=== PATIENT | female | born 1960 | race Caucasian/White ===

== ENCOUNTER 2019-03-27 19:07 | Inpatient (IN) | payer MEDICARE ==
[~2019-03-27] VITALS: Ht 165.1 cm; Wt 120.0 kg
[2019-03-27] MEDS ORDERED: AMLODIPINE2.5 MG PO (19:43)
[2019-03-27] MEDS ORDERED: SIMVASTATIN80 MG PO (19:44)
[2019-03-27] MEDS ORDERED: TIZANIDINE HCL4 MG PO (19:44)
[2019-03-27] MEDS ORDERED: LOPID600 MG PO (19:44)
[2019-03-27] MEDS ORDERED: LYRICA50 MG PO (19:45)
[2019-03-27] MEDS ORDERED: LORTAB 1010 MG PO (19:45)
[2019-03-27] MEDS ORDERED: AMITRIPTYLIN25 MG PO (19:46)
[2019-03-27] MEDS ORDERED: VITAMIN D50000 UNIT PO (19:46)
[2019-03-27] MEDS ORDERED: XANAX1 MG PO (19:46)
[2019-03-27] MEDS ORDERED: FUROSEMIDE20 MG PO (19:47)
[2019-03-27 20:10] LABS: HEMATOCRIT 37.2 % (37.0-47.0); HEMOGLOBIN 12.5 g/dl (12.0-16.0); IMMATURE GRANULOCYTES 0.5 % (0.0-5.0); MEAN CELL VOLUME 93.7 fL CALC (80.0-100.0); MEAN CORPUSCULAR HGB 31.5 pG CALC (26.0-32.0); MEAN CORPUSCULAR HGB CONC 33.6 g/L CALC (32.0-36.0); NEUT# 3.5 thou/uL (2.00-7.15); RED BLOOD COUNT 3.97 mill/uL (4.20-5.60); RED CELL DISTRI WIDTH 13.2 % (11.5-15.5)
[2019-03-27 20:12] LABS: URINE BILIRUBIN - DIPSTICK NEGATIVE (NEGATIVE); URINE BLOOD DIPSTICK NEGATIVE (NEGATIVE); URINE COLOR YELLOW; URINE GLUCOSE - DIPSTICK NEGATIVE (NEGATIVE); URINE KETONE NEGATIVE (NEGATIVE); URINE LEUK ESTERASE NEGATIVE (NEGATIVE); URINE NITRITE - DIPSTICK NEGATIVE (Negative); URINE PROTEIN - DIPSTICK NEGATIVE (NEG-TRACE); URINE UROBILINOGEN - DIPSTICK 0.2 E.U./dL (0.2)
[2019-03-27 20:14] LABS: COCAINE NEGATIVE (NEGATIVE); METHADONE NEGATIVE (NEGATIVE); TETRAHYDROCANNABIONOL NEGATIVE (NEGATIVE)
[2019-03-27 20:15] LABS: BARBITURATES NEGATIVE (NEGATIVE); OXCYCODONE POSITIVE (NEGATIVE); TRICYLIC ANTIDEPRESSANTS POSITIVE (NEGATIVE)
[2019-03-27 20:49] LABS: ALBUMIN 4.6 g/dL (3.2-5.0); BILIRUBIN, TOTAL 1.1 mg/dL (0.0-1.4); CREATININE 1.4 mg/dL (0.5-1.0); POTASSIUM 4.2 mmol/l (3.5-5.1); TOTAL PROTEIN 6.9 g/dL (6.3-8.2)
[2019-03-27 22:25] VITALS: BP 159/64
[2019-03-27 22:45] VITALS: BP 115/59
[2019-03-27 23:00] VITALS: BP 102/79
[2019-03-27 23:15] VITALS: BP 111/52
[2019-03-28] VITALS (7 sets, daily range): BP systolic 85–114; BP diastolic 45–59
[2019-03-28 10:52] LABS: HEMATOCRIT 35.7 % (37.0-47.0); HEMOGLOBIN 11.8 g/dl (12.0-16.0); IMMATURE GRANULOCYTES 0.4 % (0.0-5.0); MEAN CELL VOLUME 94.9 fL CALC (80.0-100.0); MEAN CORPUSCULAR HGB 31.4 pG CALC (26.0-32.0); MEAN CORPUSCULAR HGB CONC 33.1 g/L CALC (32.0-36.0); NEUT# 2.86 thou/uL (2.00-7.15); RED BLOOD COUNT 3.76 mill/uL (4.20-5.60); RED CELL DISTRI WIDTH 13.3 % (11.5-15.5)
[2019-03-28 11:17] LABS: ALBUMIN 3.9 g/dL (3.2-5.0); ALKALINE PHOSPHATASE 91 u/l (38-126); ANION GAP 10 (6-22 (CALC)); BUN 13 mg/dL (7-17); BUN/CREATININE RATIO 17 (12-20 (CALC)); CARBON DIOXIDE 27 mmol/l (22-30); CHLORIDE 107 mmol/l (95-108); CREATININE 0.7 mg/dL (0.5-1.0); GFR > 60 ML/MIN (>=60 (CALC)); GFR FOR AFR.AMER. > 60 ML/MIN (>=60 (CALC)); MAGNESIUM 1.9 mg/dL (1.6-2.3); POTASSIUM 3.7 mmol/l (3.5-5.1); SGOT/AST 19 u/l (14-36); SODIUM 140 mmol/l (137-146); TOTAL PROTEIN 6.1 g/dL (6.3-8.2)
== END 2019-03-28 13:22 | disposition home or self-care (01) | DRG 917 ==
LOC: ED 19:07 → ED-I 20:45 → ED 21:01 → ICU 21:02
PROVIDERS: Emergency Medicine; Internal Medicine Nephrology; ADMIT Internal Medicine; ATTEND Internal Medicine
PROC: 5A09357 Assistance with Respiratory Ventilation, Less than 24 Consecutive Hours, Continuous Positive Airway Pressure (ICD-10-PCS; principal; 2019-03-27)
DX: T40.2X1A Poisoning by other opioids, accidental (unintentional), initial encounter (principal); J96.92 Respiratory failure, unspecified with hypercapnia; J96.91 Respiratory failure, unspecified with hypoxia; E87.2 Acidosis; N17.9 Acute kidney failure, unspecified; Z68.41 Body mass index [BMI] 40.0-44.9, adult; T40.601A Poisoning by unspecified narcotics, accidental (unintentional), initial encounter; T42.4X1A Poisoning by benzodiazepines, accidental (unintentional), initial encounter; T42.6X1A Poisoning by other antiepileptic and sedative-hypnotic drugs, accidental (unintentional), initial encounter; I10 Essential (primary) hypertension; F41.8 Other specified anxiety disorders; E86.0 Dehydration; E78.5 Hyperlipidemia, unspecified; G89.29 Other chronic pain; M54.9 Dorsalgia, unspecified; E66.9 Obesity, unspecified; E56.0 Deficiency of vitamin E; F17.210 Nicotine dependence, cigarettes, uncomplicated; Y92.009 Unspecified place in unspecified non-institutional (private) residence as the place of occurrence of the external cause
CPT/HCPCS: J1650

== ENCOUNTER 2019-07-09 06:04 | Day surgery (SDC) | payer MEDICARE ==
[~2019-07-09] VITALS: Ht 162.6 cm; Wt 121.6 kg
[~2019-07-09 06:04] MED LIST: AMITRIPTYLIN25 MG PO; AMLODIPINE2.5 MG PO; BALANCED B PO; CITALOPRAM40 M1 PO; FUROSEMIDE20 MG PO; LOPID600 MG PO; LORTAB 1010 MG PO; LYRICA50 MG PO; MOTRIN800 MG PO; SIMVASTATIN80 MG PO; TIZANIDINE HCL4 MG PO; VITAMIN D50000 UNIT PO; XANAX1 MG PO
[2019-07-09] MEDS ORDERED: ATORVASTATIN CA40 MG PO (06:34)
[2019-07-09 07:39] VITALS: BP 143/86
== END 2019-07-09 08:05 | disposition home or self-care (01) ==
LOC: ORM 06:04
PROVIDERS: ATTEND Anesthesiology Pain Medicine
DX: M46.1 Sacroiliitis, not elsewhere classified (principal)
CPT/HCPCS: Q9967

== ENCOUNTER 2019-10-04 | Emergency (ER) | payer MEDICARE ==
[~2019-10-04] MED LIST changes: +ATORVASTATIN CA40 MG PO
[2019-10-04 13:20] LABS: IMMATURE GRANULOCYTES 0.4 % (0.0-5.0); MEAN CORPUSCULAR HGB 28.9 pG CALC (26.0-32.0); MEAN CORPUSCULAR HGB CONC 32.4 g/L CALC (32.0-36.0); NEUT# 2.62 thou/uL (2.00-7.15); RED BLOOD COUNT 3.15 mill/uL (4.20-5.60); RED CELL DISTRI WIDTH 13.6 % (11.5-15.5)
[2019-10-04 13:26] LABS: HEMATOCRIT 28.1 % (37.0-47.0); HEMOGLOBIN 9.1 g/dl (12.0-16.0); MEAN CELL VOLUME 89.2 fL CALC (80.0-100.0)
[2019-10-04 13:36] LABS: ALBUMIN 3.8 g/dL (3.2-5.0); ALKALINE PHOSPHATASE 116 u/l (38-126); ANION GAP 9 (6-22 (CALC)); BILIRUBIN, TOTAL 1.3 mg/dL (0.0-1.4); BUN 9 mg/dL (7-17); BUN/CREATININE RATIO 14 (12-20 (CALC)); CARBON DIOXIDE 28 mmol/l (22-30); CHLORIDE 104 mmol/l (95-108); CREATININE 0.6 mg/dL (0.5-1.0); GFR > 60 ML/MIN (>=60 (CALC)); GFR FOR AFR.AMER. > 60 ML/MIN (>=60 (CALC)); POTASSIUM 3.5 mmol/l (3.5-5.1); SGOT/AST 31 u/l (14-36); SODIUM 138 mmol/l (137-146); TOTAL PROTEIN 6.7 g/dL (6.3-8.2)
[2019-10-04 13:48] LABS: MYOGLOBIN 18 ng/mL (0 - 62)
[2019-10-04] MEDS ORDERED: PERCOCET 10/31 COMBO PO (14:46)
[2019-10-04] MEDS ORDERED: PROFERRIN- PO (14:48)
[2019-10-04] MEDS ORDERED: POT CHLORIDE10 ME1 PO (14:49)
[2019-10-04 14:54] LABS: URINE BLOOD DIPSTICK NEGATIVE (NEGATIVE); URINE COLOR YELLOW; URINE GLUCOSE - DIPSTICK NEGATIVE (NEGATIVE); URINE KETONE TRACE mg/dL (NEGATIVE); URINE LEUK ESTERASE NEGATIVE (NEGATIVE); URINE NITRITE - DIPSTICK NEGATIVE (Negative); URINE PH 8.5 (4.5-8.0); URINE PROTEIN - DIPSTICK NEGATIVE (NEG-TRACE); URINE SPECIFIC GRAVITY 1.015; URINE UROBILINOGEN - DIPSTICK >=8.0 E.U./dL (0.2)
[2019-10-04 14:57] LABS: URINE BILIRUBIN - DIPSTICK MODERATE (NEGATIVE)
[2019-10-04 14:58] LABS: BARBITURATES NEGATIVE (NEGATIVE); COCAINE NEGATIVE (NEGATIVE); METHADONE NEGATIVE (NEGATIVE); OXCYCODONE POSITIVE (NEGATIVE); TETRAHYDROCANNABIONOL NEGATIVE (NEGATIVE); TRICYLIC ANTIDEPRESSANTS POSITIVE (NEGATIVE)
[2019-10-04] MEDS ORDERED: ONDANSETRON4 MG PO (15:12)
[2020-05-25] MEDS ORDERED: LYRICA100 MG PO (17:20)
[2020-05-25] MEDS ORDERED: OXAYDO7.5 MG PO (17:22)
[2020-05-25] MEDS ORDERED: XANAX0.5 MG PO (17:23)
[2020-05-25] MEDS ORDERED: AMITRIPTYLIN75 MG PO (17:24)
[2020-05-25] MEDS ORDERED: CYMBALTA60 MG PO (17:25)
== END 2019-10-04 15:50 | disposition home or self-care (01) ==
PROVIDERS: Emergency Medicine
DX: R53.1 Weakness (principal); D64.9 Anemia, unspecified; I10 Essential (primary) hypertension; F17.200 Nicotine dependence, unspecified, uncomplicated

== ENCOUNTER 2019-12-07 07:58 | Observation (INO) | payer MEDICARE ==
[~2019-12-07] VITALS: Ht 165.1 cm; Wt 112.7 kg
[~2019-12-07 07:58] MED LIST changes: +ONDANSETRON4 MG PO; +PERCOCET 10/31 COMBO PO; +POT CHLORIDE10 ME1 PO; +PROFERRIN- PO
[2019-12-07 08:28] LABS: IMMATURE GRANULOCYTES 0.2 % (0.0-5.0); MEAN CELL VOLUME 84.7 fL CALC (80.0-100.0); MEAN CORPUSCULAR HGB 27.6 pG CALC (26.0-32.0); MEAN CORPUSCULAR HGB CONC 32.6 g/L CALC (32.0-36.0); NEUT# 6.42 thou/uL (2.00-7.15); RED BLOOD COUNT 5.54 mill/uL (4.20-5.60); RED CELL DISTRI WIDTH 13.8 % (11.5-15.5)
[2019-12-07 08:43] LABS: ALKALINE PHOSPHATASE 134 u/l (38-126); BILIRUBIN, TOTAL 1.4 mg/dL (0.0-1.4); BUN 16 mg/dL (7-17); BUN/CREATININE RATIO 20 (12-20 (CALC)); CHLORIDE 113 mmol/l (95-108); CREATININE 0.8 mg/dL (0.5-1.0); GFR > 60 ML/MIN (>=60 (CALC)); GFR FOR AFR.AMER. > 60 ML/MIN (>=60 (CALC)); LIPASE 126 u/l (23-300); POTASSIUM 4.1 mmol/l (3.5-5.1); SGOT/AST 26 u/l (14-36); SODIUM 141 mmol/l (137-146); TOTAL PROTEIN 7.9 g/dL (6.3-8.2)
[2019-12-07 08:51] LABS: ALBUMIN 4.6 g/dL (3.2-5.0); ANION GAP 16 (6-22 (CALC)); CARBON DIOXIDE 16 mmol/l (22-30); HEMATOCRIT 46.9 % (37.0-47.0); HEMOGLOBIN 15.3 g/dl (12.0-16.0)
[2019-12-07] MEDS ORDERED: OXYCONTIN15 MG PO (10:16)
[2019-12-07 11:36] VITALS: BP 134/68
[2019-12-07 15:37] VITALS: BP 170/78
[2019-12-07 19:26] VITALS: BP 145/70
[2019-12-07 20:19] LABS: URINE BILIRUBIN - DIPSTICK NEGATIVE (NEGATIVE); URINE BLOOD DIPSTICK NEGATIVE (NEGATIVE); URINE COLOR YELLOW; URINE GLUCOSE - DIPSTICK NEGATIVE (NEGATIVE); URINE KETONE NEGATIVE (NEGATIVE); URINE LEUK ESTERASE NEGATIVE (NEGATIVE); URINE NITRITE - DIPSTICK NEGATIVE (Negative); URINE PROTEIN - DIPSTICK TRACE mg/dL (NEG-TRACE); URINE SPECIFIC GRAVITY 1.025; URINE UROBILINOGEN - DIPSTICK 0.2 E.U./dL (0.2)
[2019-12-08 03:50] VITALS: BP 152/79
[2019-12-08 05:13] LABS: MEAN CELL VOLUME 88.2 fL CALC (80.0-100.0); MEAN CORPUSCULAR HGB CONC 31.8 g/L CALC (32.0-36.0); RED BLOOD COUNT 4.57 mill/uL (4.20-5.60); RED CELL DISTRI WIDTH 13.9 % (11.5-15.5)
[2019-12-08 05:16] LABS: HEMATOCRIT 40.3 % (37.0-47.0); HEMOGLOBIN 12.8 g/dl (12.0-16.0)
[2019-12-08 05:33] LABS: ALKALINE PHOSPHATASE 93 u/l (38-126); ANION GAP 10 (6-22 (CALC)); BILIRUBIN, TOTAL 1.3 mg/dL (0.0-1.4); BUN 19 mg/dL (7-17); BUN/CREATININE RATIO 29 (12-20 (CALC)); CARBON DIOXIDE 19 mmol/l (22-30); CHLORIDE 117 mmol/l (95-108); CREATININE 0.7 mg/dL (0.5-1.0); GFR > 60 ML/MIN (>=60 (CALC)); GFR FOR AFR.AMER. > 60 ML/MIN (>=60 (CALC)); POTASSIUM 4.2 mmol/l (3.5-5.1); SGOT/AST 20 u/l (14-36); SODIUM 142 mmol/l (137-146)
[2019-12-08 05:40] LABS: ALBUMIN 3.6 g/dL (3.2-5.0); TOTAL PROTEIN 6.1 g/dL (6.3-8.2)
[2019-12-08 08:10] VITALS: BP 153/88
[2019-12-08 15:26] VITALS: BP 147/75
[2019-12-08 18:38] VITALS: BP 135/70
[2019-12-09 03:48] VITALS: BP 135/79
[2019-12-09 07:29] VITALS: BP 152/87
[2019-12-09] MEDS ORDERED: ZOFRAN4 MG/TAB PO ×2 (09:53)
[2020-05-25] MEDS ORDERED: LYRICA100 MG PO (17:20)
[2020-05-25] MEDS ORDERED: OXAYDO7.5 MG PO (17:22)
[2020-05-25] MEDS ORDERED: XANAX0.5 MG PO (17:23)
[2020-05-25] MEDS ORDERED: AMITRIPTYLIN75 MG PO (17:24)
[2020-05-25] MEDS ORDERED: CYMBALTA60 MG PO (17:25)
== END 2019-12-09 14:43 ==
LOC: ED 07:58 → ED-I 09:20 → ED 09:36 → MS2 09:37
PROVIDERS: Family Medicine; Nurse Practitioner Family; ADMIT Internal Medicine; ATTEND Internal Medicine
DX: R11.2 Nausea with vomiting, unspecified (principal); R19.7 Diarrhea, unspecified; R53.1 Weakness; I10 Essential (primary) hypertension; E78.5 Hyperlipidemia, unspecified; F41.9 Anxiety disorder, unspecified; F32.9 Major depressive disorder, single episode, unspecified; F17.210 Nicotine dependence, cigarettes, uncomplicated; G89.4 Chronic pain syndrome; Z96.651 Presence of right artificial knee joint
CPT/HCPCS: G0378

== ENCOUNTER 2019-12-11 15:14 | Inpatient (IN) | payer MEDICARE ==
[~2019-12-11] VITALS: Ht 165.1 cm; Wt 117.0 kg
--- NOTE | 2019-12-11 | NUR ---
VENT SETTINGS UNCHANGED. PATIENT REMAINS SEDATED ON DIPRIVAN GTT WHICH HAS BEEN TITRATED DOWN FOR BP AND HR.
[~2019-12-11 15:14] MED LIST changes: +OXYCONTIN15 MG PO; +ZOFRAN4 MG/TAB PO
--- NOTE | 2019-12-11 15:26 | NUR ---
PT TO ROOM PER EMS. ALERT/ORIENTED X3 AT THIS TIME. WAS GIVEN NARCAN PER EMS ENROUTE
--- NOTE | 2019-12-11 16:00 | NUR ---
PT DOZING, NO S/SOF DISTRESS. CALL QUESADA WITHIN REACH.
--- NOTE | 2019-12-11 16:30 | NUR ---
PT DROWSY AROUSES TO LOUD VERBAL STIMULI, MILD TACTILE STIMULI, NODS OFF EASILY, SATS MAINTAINED CALL QUESADA WITHIN REACH.
[2019-12-11 16:33] LABS: HEMATOCRIT 43.1 % (37.0-47.0); IMMATURE GRANULOCYTES 0.4 % (0.0-5.0); MEAN CORPUSCULAR HGB 27.9 pG CALC (26.0-32.0); MEAN CORPUSCULAR HGB CONC 32.5 g/L CALC (32.0-36.0); NEUT# 5.78 thou/uL (2.00-7.15); RED BLOOD COUNT 5.01 mill/uL (4.20-5.60)
--- NOTE | 2019-12-11 16:53 | NUR ---
NARCAN GIVEN ORDERED WITH MINIMAL RESULTS, PT REMAINS LETHARGIC AROUSES TO LOUD VERBAL STIMULI, BUT NODS OFF EASILY AND SPEECH GARBLED AND UNINTELLIGBLE. NOTIFIED
[2019-12-11 16:54] LABS: ALKALINE PHOSPHATASE 115 u/l (38-126); BILIRUBIN, TOTAL 1.3 mg/dL (0.0-1.4); BUN 17 mg/dL (7-17); BUN/CREATININE RATIO 19 (12-20 (CALC)); CREATININE 0.9 mg/dL (0.5-1.0); ETHYL ALCOHOL 0 mg/dl (0-30); GFR > 60 ML/MIN (>=60 (CALC)); GFR FOR AFR.AMER. > 60 ML/MIN (>=60 (CALC)); LIPASE 21 u/l (23-300); POTASSIUM 3.9 mmol/l (3.5-5.1); SGOT/AST 28 u/l (14-36); SODIUM 136 mmol/l (137-146)
[2019-12-11 16:58] LABS: ALBUMIN 4.5 g/dL (3.2-5.0); ANION GAP 12 (6-22 (CALC)); CARBON DIOXIDE 27 mmol/l (22-30); CHLORIDE 101 mmol/l (95-108); TOTAL PROTEIN 7.5 g/dL (6.3-8.2)
--- NOTE | 2019-12-11 17:15 | NUR ---
AT BEDSIDE FOR EVAL, SISTER UPDATED
--- NOTE | 2019-12-11 17:16 | NUR ---
NARCAN GIVEN AGAIN WITHOUT RESPONSE FROM PT
--- NOTE | 2019-12-11 17:23 | NUR ---
1723- ATOMIDATE AND ROCURONIUM GIVEN BY MD AND PT INTUBATED WITH 7.5 AT 21CM AT LIP LINE. 172 - 16 OG PLACED BY MD PLACEMENT VERIFIED. 172 - PROPOFOL STARTED ORDERED, 174 - TLC PLACED BY MD 1750 - RADIOLOGY AT BEDSIDE FOR PALCEMENT VERIFICATION
[2019-12-11 18:07] LABS: URINE BILIRUBIN - DIPSTICK NEGATIVE (NEGATIVE); URINE BLOOD DIPSTICK NEGATIVE (NEGATIVE); URINE COLOR YELLOW; URINE GLUCOSE - DIPSTICK NEGATIVE (NEGATIVE); URINE KETONE NEGATIVE (NEGATIVE); URINE LEUK ESTERASE NEGATIVE (NEGATIVE); URINE PH 5.5 (4.5-8.0); URINE PROTEIN - DIPSTICK NEGATIVE (NEG-TRACE); URINE UROBILINOGEN - DIPSTICK 0.2 E.U./dL (0.2)
[2019-12-11 18:08] LABS: URINE NITRITE - DIPSTICK POSITIVE (Negative)
[2019-12-11 18:09] LABS: COCAINE NEGATIVE (NEGATIVE); TETRAHYDROCANNABIONOL NEGATIVE (NEGATIVE)
[2019-12-11 18:10] LABS: BARBITURATES NEGATIVE (NEGATIVE); METHADONE NEGATIVE (NEGATIVE); OXCYCODONE POSITIVE (NEGATIVE); TRICYLIC ANTIDEPRESSANTS POSITIVE (NEGATIVE)
[2019-12-11 18:11] LABS: URINE BACTERIA RARE hpf; URINE RBC 0-2 RBC/hpf (0-5); URINE SQUAMOUS EPITHELIAL CELL FEW EPI/hpf (0-FEW)
--- NOTE | 2019-12-11 18:32 | NUR ---
PT TO CT. RT AND RN IN ATTENDANCE MONITOR AND IV DRIPS IN PLACE
--- NOTE | 2019-12-11 18:36 | NUR ---
PER CONVO WITH POISON CONTORL CONITINUE SUPPORTIVE MEASURESD AND REPEAT EKG IN 4 HRS AWARE.
--- NOTE | 2019-12-11 18:44 | NUR ---
RECEIVED PATIENT INTUBATED WITH A 7.5 ETT AT 25 CM OF THE LIPS WITH THE FOLLOWING SETTING AC 16, VT 500, 5 PEEP WITH 40%.
--- NOTE | 2019-12-11 18:52 | NUR ---
SISTER UPDATED AND AWARE OF POTENTIAL TRANSFER.
--- NOTE | 2019-12-11 19:15 | NUR ---
PT RETURNED FROM CT. TRANSPORT MONITOR DC'S AND RM 11 MONITOR APPLIED. RT PRESENT TO POSITIONED VENTILATOR. DRIPS IN PLACE. 1100ML OF CLEAR YELLOW URINE EMPTIED FROM BROWNLEE BAG
--- NOTE | 2019-12-11 19:57 | NUR ---
PT MEDICATED WITH VERSED FOR MOVEMENT AND EYE OPENING WITH PROPOFOL ALREADY AT 75MCG/KG/MIN
--- NOTE | 2019-12-11 20:10 | NUR ---
TUUBE WAS AT 25CM OF THE LIPS. DR LAROSE CALLED RT TO PULL UP 2CM. TUBE 7.5 AT 23 CM OF THE LIPS.
--- NOTE | 2019-12-11 20:58 | NUR ---
ICU UNABLE TO TAKE REPORT AT THIS TIME
--- NOTE | 2019-12-11 21:12 | NUR ---
REPORT CALLED TO AMITA RITTER
--- NOTE | 2019-12-11 21:20 | NUR ---
REPORT GIVEN TO STONE LEVI
[2019-12-11 21:30] VITALS: BP 110/66
--- NOTE | 2019-12-11 21:30 | NUR ---
RECEIVED INTO ICU BED 3 FROM ER VIA BED. PATIENT IS ORALLY INTUBATED AND BEING BAGGED WITH O2 FOR TRANSPORT-ACCOMPANIED BY ER NURSE MARISOL DIEGO/LONG WALL SHEAR OPERATOR AND JENNIFER/GOLD MARKER. TRANSFERRED PATIENT TO BED WITH SLIDE BOARD AND 4 ASSISTS. PATIENT DOES NOT AWAKEN TO VERBAL OR TACTILE STIMULI. SEDATED ON DIPRIVAN GTT AT 75 MCG/KG/MIN. 7.[address] ON VENT-TV 500, AC MODE RATE 16, FIO2 40%, PEEP 5. RR 16. O2 SAT 100% BREATH SOUNDS CLEAR THROUGHOUT. OG TUBE IN PLACE TO LIS WITH NO OUTPUT AT THIS TIME. ABD SOFTLY DISTENDED WITH HYPOACTIVE BOWEL SOUNDS PRESENT. BROWNLEE DRAINS YELLOW URINE WITH WHITE SEDIMENT. NO PERIPHERAL EDEMA, PULSES PALPABLE. SKIN PINK, SLT COOL TO TOUCH AND DRY. RIJTLC IN PLACE WITH DIPRIVAN AND NS INFUSING. SALINE LOCK INTACT IN RFA, SITE BENIGN. HOSPITAL INSURANCE REPRESENTATIVE SHOWS SR. BILATERAL WRIST RESTRAINTS IN PLACE.
--- NOTE | 2019-12-11 21:35 | NUR ---
PT TRANSPORTED TO ICU WITH RT, RN AND AIDES IN ATTENDANCE. MONITORS IN PLACE
[2019-12-11 21:45] VITALS: BP 95/49
[2019-12-11 22:00] VITALS: BP 93/52
[2019-12-11 22:15] VITALS: BP 93/53
[2019-12-11 23:00] VITALS: BP 83/56
--- NOTE | 2019-12-11 23:00 | NUR ---
NO CHANGES TO RPEORT AT THIS TIME.
[2019-12-11 23:30] VITALS: BP 108/45
[2019-12-12] VITALS (26 sets, daily range): BP systolic 92–164; BP diastolic 46–91
--- NOTE | 2019-12-12 | NUR ---
VENT SETTINGS UNCHANGED. RR 16. SUPERVISOR LUMP ROOM SB-SR.
--- NOTE | 2019-12-12 01:00 | NUR ---
DIPRIVAN GTT HAS BEEN GRADUALLY DECREASED FOR HR 48-LOW 50'S. PATIENT REMAINS SEDATED -4 RASS.
--- NOTE | 2019-12-12 02:00 | NUR ---
VSS. NO CHANGES TO REPORT. SB-SR ON MONITOR.
--- NOTE | 2019-12-12 03:00 | NUR ---
PATIENT REMAINS SEDATED. NO EYE OPENING TO NAME BUT IS ABLE TO SQUEEZE HAND WHEN ASKED AND NODS HEAD TO YES AND NO QUESTIONS. EMOTIONAL SUPPORT AND REASSURANCE PROVIDED. PATIENT IS CALM AND COOPERATIVE. DIPRIVAN CONTINUES AT 35 MCG/KG/MIN WITH RASS -3.
--- NOTE | 2019-12-12 04:00 | NUR ---
CONTINUES RESTING WITH EYES CLOSED, CALM AND COOPERATIVE ON DIPRIVAN AT 35 MCG/KG/MIN. RASS -3.
--- NOTE | 2019-12-12 05:45 | NUR ---
PATIENT OPENS EYS TO NAME. EXPLANATION OF WHY SHE IS IN HOSPITAL, VENT, IV'S, RESTRAINTS. PATIENT CALM AND COOPERATIVE. SOFT WRIST RESTRAINTS REMAIN IN PLACE. PARTIAL BATH GIVEN. LINENS STRAIGHTENED AND REPOSITIONED IN BED.
--- NOTE | 2019-12-12 07:15 | NUR ---
REPORT RECEIVED FROM NIGHT RN. PT INTUBATED AND SEDATED. PT FOLLOWS COMMANDS. PT ABLE TO GIVE THUMBS UP AND WIGGLE TOES TO COMMAND. NO DISTRESS NOTED. WILL CONTINUE TO MONITOR.
--- NOTE | 2019-12-12 07:18 | NUR ---
RECEIVED PT ON VENT WITH ORDERED SETTINGS. ABG SHOWES RESPIRATORY ALKOLOSIS. PT PLACED IN SIMV AND TIDAL VOLUME DECREASED TO TO 450 PRESSURE SUPPORT OF [address] MIR.
--- NOTE | 2019-12-12 08:25 | NUR ---
DR. MIR AT BEDSIDE TO ASSESS PT
--- NOTE | 2019-12-12 08:25 | NUR ---
LEFT LOWER ABDOMINAL DRESSING SATURATED AND CHANGED
--- NOTE | 2019-12-12 08:30 | NUR ---
DR. MIR AT BEDSIDE TO ASSESS PT. DR. MIR NOTIFIED ABOUT BLOOD IN URINE AND DRESSING SATURATION.
--- NOTE | 2019-12-12 08:35 | NUR ---
PER DR MIR PROPOFOL GTT TURNED OFF
--- NOTE | 2019-12-12 08:48 | NUR ---
PER DR CLARKE PONCE TO EXTUBATE PT. RT, DR. MIR AND RT AT BEDSIDE. SUCCESSFUL EXTUBATION. NO DISTRESS NOTED. WILL CONTINUE TO MONITOR.
--- NOTE | 2019-12-12 08:49 | NUR ---
ABG REPEATED. RESULTS RECOERDED. PT EXTUBATED AT 0848 AND PLACED ON 2L NC SAO2 98%. RN AND DR. MIR AT BEDSIDE.
--- NOTE | 2019-12-12 08:58 | NUR ---
SISTER MAURIZIO CALLED AND UPDATED ON PATIENT STATUS. ASKED TO COME IN AROUND [address] MIR ABOUT PATEINT PLAN OF CARE
--- NOTE | 2019-12-12 09:00 | NUR ---
PT RESTING IN BED. NO DISTRESS NOTED. PT HAS HOARSE VOICE. PT ABLE TO ANSWER QUESTIONS APPROPRIATELY. PT ORIENTED TO SELF, PLACE, TIME AND SITUATION.
--- NOTE | 2019-12-12 09:30 | NUR ---
DR. SHEETS NOTIFIED THAT DRESSING SATURATED WITH BLOOD AND PURULENT FLUID WITHIN AN HOUR OF DRESSING CHANGE
--- NOTE | 2019-12-12 09:54 | NUR ---
DR. CHAVARRIA AT BEDSIDE TO ASSESS PT. PER DR CHAVARRIA PLACE WOUND VAC OVER MIDLINE INCISION AND LEFT LOWER ABDOMEN PUNCTURE SITE.
--- NOTE | 2019-12-12 10:00 | NUR ---
PT RESTING IN BED WITH EYES CLOSED. NO DISTRESS NOTED. DENIES PAIN AT THIS TIME. PT ABLE TO ANSWER ORIENTATION QUESTIONS. WILL CONTINUE TO MONITOR
--- NOTE | 2019-12-12 11:30 | NUR ---
DR. MIR AND PATIENT SISTER MAURIZIO AT BEDSIDE TO DISCUSS PLAN OF CARE
[2019-12-12] MEDS ORDERED: XANAX0.5 MG PO (12:24)
[2019-12-12] MEDS ORDERED: CYMBALTA30 MG PO (12:27)
[2019-12-12] MEDS ORDERED: MOTRIN800 MG PO (12:31)
[2019-12-12] MEDS ORDERED: LYRICA150 MG PO (12:33)
--- NOTE | 2019-12-12 12:45 | NUR ---
PT RESTING IN BED WITH EYES CLOSED. NO DISTRESS NOTED. DENIES PAIN AT THIS TIME. WILL CONTINUE TO MONITOR.
--- NOTE | 2019-12-12 14:10 | NUR ---
PER DR CLARKE BROWNLEE D/C. PT ABLE TO SWALLOW WATER WITHOUT DIFFICULTY. NO RESP DISTRESS NOTED.
--- NOTE | 2019-12-12 16:15 | NUR ---
PT RESTING IN BED WITH EYES CLOSED. NO DISTRESS NOTED. DENIES PAIN. WILL CONTINUE TO MONITOR
--- NOTE | 2019-12-12 18:00 | NUR ---
PT UP IN [facility] FOR DINNER. NO DISTRESS NOTED. DENIES PAIN. WILL CONTINUE TO MONITOR
--- NOTE | 2019-12-12 18:17 | NUR ---
RECEIVED CALL FROM POSION CONTROL. UPDATED ON PT STATUS
--- NOTE | 2019-12-12 19:05 | NUR ---
REPORT GIVEN BY WENDY LEVI. PATIENT IS IN BED WATCHING TV. RESP EVEN AND UNLABORED, 97% ON ROOM AIR. NO S/S OF DISTRESS NOTED. PLAN OF CARE DISCUSSED. PATIENT INFORMED TO CALL WITH ANY QUESTIONS OR CONCERNS. FALL PRECAUTIONS IN PLACE.
--- NOTE | 2019-12-12 19:44 | NUR ---
DRESSING CHANGE PERFORMED ON RIJ TLC. RAC REMOVED, PRESSURE APPILED AND RESSING.
--- NOTE | 2019-12-12 22:12 | NUR ---
UP TO BSC, 300 ML OUT
--- NOTE | 2019-12-12 23:42 | NUR ---
PATIENT RESTING WITH EYES CLOSED. BAG OF IV FLUID CHANGED. NO S/S OF DISTRESS NOTED.
[2019-12-13] VITALS (10 sets, daily range): BP systolic 123–182; BP diastolic 47–88
--- NOTE | 2019-12-13 00:55 | NUR ---
UP TO BSC, 500 ML URINE OUT
--- NOTE | 2019-12-13 04:44 | NUR ---
MORNING LABS DRAWN FROM [facility]
[2019-12-13 05:10] LABS: MEAN CELL VOLUME 84.7 fL CALC (80.0-100.0); MEAN CORPUSCULAR HGB 27.8 pG CALC (26.0-32.0); MEAN CORPUSCULAR HGB CONC 32.8 g/L CALC (32.0-36.0); RED BLOOD COUNT 4.18 mill/uL (4.20-5.60); RED CELL DISTRI WIDTH 13.8 % (11.5-15.5)
[2019-12-13 05:18] LABS: HEMATOCRIT 35.4 % (37.0-47.0); HEMOGLOBIN 11.6 g/dl (12.0-16.0)
[2019-12-13 05:35] LABS: ANION GAP 5 (6-22 (CALC)); BUN 7 mg/dL (7-17); BUN/CREATININE RATIO 12 (12-20 (CALC)); CARBON DIOXIDE 26 mmol/l (22-30); CREATININE 0.5 mg/dL (0.5-1.0); GFR > 60 ML/MIN (>=60 (CALC)); GFR FOR AFR.AMER. > 60 ML/MIN (>=60 (CALC)); POTASSIUM 3.5 mmol/l (3.5-5.1); SODIUM 141 mmol/l (137-146)
[2019-12-13 05:42] LABS: CHLORIDE 114 mmol/l (95-108)
--- NOTE | 2019-12-13 05:58 | NUR ---
PATIENT RESTING WITH EYES CLOSED. RESP EVEN AND UNLABORED. NO S/S OF DITRESS NOTED.
--- NOTE | 2019-12-13 07:20 | NUR ---
REPORT RECEIVED FROM [facility] NURSE. PT RESTING IN BED WITH EYES CLOSED. NO DISTRESS NOTED. WILL CONTINUE TO MONITOR
--- NOTE | 2019-12-13 08:20 | NUR ---
PT RESTING IN BED. NO DISTRESS NOTED. PATEINT COMPLANING OF PAIN. PAIN MEDS TO BE GIVEN. DR. MIR AT BEDSIDE TO ASSESS PT. WILL CONTINUE TO MONITOR.
--- NOTE | 2019-12-13 12:30 | NUR ---
PT WAS IN UP IN CHAIR FOR LUNCH. BACK TO BED. NO DISTRESS NOTED. WILL CONTINUE TO MONITOR.
--- NOTE | 2019-12-13 16:10 | NUR ---
PT RESTING IN BED. NO DISTRESS NOTED. RECEIVED PAIN MEDICATION FOR BACK PAIN. WILL CONTINUE TO MONITOR
--- NOTE | 2019-12-13 18:55 | NUR ---
REPORT GIVEN TO NIGHT RN. PT UP IN CHAIR. NO DISTRESS NOTED. VOIDING VIA BEDSIDE COMMODE. RECEIVED PRN MEDICATION FOR PAIN.
--- NOTE | 2019-12-13 19:35 | NUR ---
PATIENT SITS ON HER RECLINER. ALERT AND ORIENTED X4. ON RA, NO SOB NOTED. EXPRESSES HER CONCERN ON HER MEDICATIONS SUCH HER PAIN MED AND AMITRIPTYLINE DOSAGES ALWAYS CHANGED BY ALL OF HER DOCTORS, SHE REPORTS SHE HAS DIFFERENT DOCTORS DUE TO HER MEDICAL HISTORY. NURSING ASSESSMENT PERFORMED. RIJ 3 LUMEN INTCAT, RETURNS BLOOD PROPERLY. POC FOR TONIGHT DISCUSSED. PATIENT ABLE TO WALK TO HER BED. COMPLAINS OF PAIN, EDUCATED ON MED SCHEDULE. NO NEEDS AT THIS TIME. CALL LIGHT WITHIN REACH.
--- NOTE | 2019-12-13 21:19 | NUR ---
patient able to tolerate her bedtime meds. requests pain med when its due. bp med given per parameters. watches tv. call light within reach.
--- NOTE | 2019-12-13 22:03 | NUR ---
PAIN MED GIVEN PER REQUEST. HEAT PACKS WERE OFFERED, PATIENT REFUSES, STATES HEAT WILL NOT HELP PAIN. NO OTHER NEEDS. WATCHES TV. CALL LIGHT WITHIN REACH.
[2019-12-14] VITALS (7 sets, daily range): BP systolic 142–173; BP diastolic 63–80
--- NOTE | 2019-12-14 00:22 | NUR ---
EMMIE LAYS ON HER LEFT SIDE. AWAKE. NO COMPLAINTS OR NEEDS AT THIS TIME. NO ACUTE DISTRESS SHOWN. CALL LIGHT WITHIN REACH.
--- NOTE | 2019-12-14 03:43 | NUR ---
patient clinical application manager light, assist stnby to bsc. voids. no bm. lays back in bed, would like pain med when do. reports she was ableto "doze off" for some time.afebrile. call light within reach.
--- NOTE | 2019-12-14 07:20 | NUR ---
REPORT RECEIVED FROM NIGHT NURSE. PT RESTING IN BED. NO DISTRESS NOTED. WILL CONTINUE TO MONITOR.
--- NOTE | 2019-12-14 10:20 | NUR ---
DR. MIR AT BEDSIDE TO ASSESS PT. NOTIFIED THAT PT BP ELEVATED DUE TO PAIN. PAIN MEDS INCREASED AND MOTRIN ADDED. NOTIFIED MD THAT PT HASN'T HAD A BM FOR A FEW DAYS. PRUNE JUICE GIVEN. BOWEL CARE MEDS TO BE ORDERD-
--- NOTE | 2019-12-14 12:00 | NUR ---
PT UP IN CHAIR FOR LUNCH. DENIES SOB. NO DISTRESS NOTED. AMBULATED WITH RN ASSISTANCE. WILL CONTINUE TO MONITOR.
--- NOTE | 2019-12-14 16:15 | NUR ---
PT RESTING IN BED WITH EYES CLOSED. NO DISTRESS NOTED. PT STATES PAIN MEDICATIONS WORKING. WILL CONTINUE TO MONITOR
--- NOTE | 2019-12-14 20:13 | NUR ---
PT. TO MED/SURG AT THIS TIME.
[2019-12-15 03:15] VITALS: BP 141/79
[2019-12-15 06:42] LABS: HEMATOCRIT 35.7 % (37.0-47.0); HEMOGLOBIN 11.7 g/dl (12.0-16.0); MEAN CELL VOLUME 84.2 fL CALC (80.0-100.0); MEAN CORPUSCULAR HGB 27.6 pG CALC (26.0-32.0); MEAN CORPUSCULAR HGB CONC 32.8 g/L CALC (32.0-36.0); RED BLOOD COUNT 4.24 mill/uL (4.20-5.60); RED CELL DISTRI WIDTH 13.7 % (11.5-15.5)
[2019-12-15 07:08] LABS: ANION GAP 7 (6-22 (CALC)); BUN 17 mg/dL (7-17); BUN/CREATININE RATIO 29 (12-20 (CALC)); CARBON DIOXIDE 25 mmol/l (22-30); CHLORIDE 110 mmol/l (95-108); CREATININE 0.6 mg/dL (0.5-1.0); GFR > 60 ML/MIN (>=60 (CALC)); GFR FOR AFR.AMER. > 60 ML/MIN (>=60 (CALC)); POTASSIUM 3.7 mmol/l (3.5-5.1); SODIUM 138 mmol/l (137-146)
[2019-12-15 08:00] VITALS: BP 161/76
--- NOTE | 2019-12-15 09:00 | NUR ---
PT IS AWAKE, ALERT, ORIENTED X 3. LUNGS CLEAR, RA. PT DENIES SHORTNESS OF BREATH OR CHEST PAIN. NO EVIDENCE OF ALTERED MENTAL STATUS.
[2019-12-15 15:00] VITALS: BP 148/83
--- NOTE | 2019-12-15 16:00 | NUR ---
PT PROVIDED PAIN MED REQUESTED FOR CHRONIC BACK PAIN. PT WAS ABLE TO SHOWER THIS AFTERNOON. RIJ CENTRAL LINE REMOVED WITHOUT DIFFICULTY.
[2019-12-15 18:38] VITALS: BP 151/63
--- NOTE | 2019-12-15 19:00 | NUR ---
RECEIVED REPORT FROM DAY NURSEPATIENT CURRENTLY SITTING IN CHAIR, EVEN UNLABORED BREATHING CALL LIGHT AT REACH.
--- NOTE | 2019-12-15 22:00 | NUR ---
PATIENT ALERT ORIENTED X 3 ABLE TO MAKE NEEDS KNONW, AMBULATORY, STEADY GAIT, LBM 12/14, C/O OF LOWER BACK PAIN WILL MEDICATE.
--- NOTE | 2019-12-16 | NUR ---
PATIENT APPEARS TO BE SLEEPING WITH EYES CLOSED,WITH EVEN UNLABORED BREATHING CALL LIGHT AT REACH.
[2019-12-16 03:10] VITALS: BP 144/76
--- NOTE | 2019-12-16 05:12 | NUR ---
PATIENT AWAKE AT THIS TIME, C/O LOWER BACK PAIN PRN ROXICODONE GIVEN, WILL REEVALUATE.
[2019-12-16 05:26] LABS: HEMATOCRIT 35.2 % (37.0-47.0); HEMOGLOBIN 11.4 g/dl (12.0-16.0); MEAN CELL VOLUME 84.2 fL CALC (80.0-100.0); MEAN CORPUSCULAR HGB 27.3 pG CALC (26.0-32.0); MEAN CORPUSCULAR HGB CONC 32.4 g/L CALC (32.0-36.0); RED BLOOD COUNT 4.18 mill/uL (4.20-5.60); RED CELL DISTRI WIDTH 13.8 % (11.5-15.5)
[2019-12-16 05:48] LABS: ANION GAP 9 (6-22 (CALC)); BUN 21 mg/dL (7-17); BUN/CREATININE RATIO 24 (12-20 (CALC)); CARBON DIOXIDE 23 mmol/l (22-30); CHLORIDE 108 mmol/l (95-108); CREATININE 0.9 mg/dL (0.5-1.0); GFR > 60 ML/MIN (>=60 (CALC)); GFR FOR AFR.AMER. > 60 ML/MIN (>=60 (CALC)); MAGNESIUM 1.9 mg/dL (1.6-2.3); POTASSIUM 3.8 mmol/l (3.5-5.1); SODIUM 136 mmol/l (137-146)
[2019-12-16 07:27] VITALS: BP 126/58
--- NOTE | 2019-12-16 09:00 | NUR ---
PT SEEN AWAKE, ALERT, SITTING UP IN CHAIR UPON INITIAL ASSESSMENT. LUNGS CLEAR, RA. PT WITH CHRONIC PAIN ISSUES, MEDICATED NEEDED.
[2019-12-16] MEDS ORDERED: LYRICA75 MG PO (10:41)
[2019-12-16] MEDS ORDERED: CIPROFLOXACIN500 M1 PO (10:41)
[2019-12-16] MEDS ORDERED: ELAVIL50 MG PO (10:41)
[2019-12-16] MEDS ORDERED: XANAX0.5 MG PO (10:41)
[2019-12-16] MEDS ORDERED: OXYCODONE10 M1 PO (10:41)
--- NOTE | 2019-12-16 14:54 | NUR ---
The patient was attempted this moorning but busy with ADL/ Kaz is seen this PM. She has an antalgixc gait and requires and AD of FWW for her balance. Her transitional movements require min assist as she has loss of sensation in the BLEs from previous injury. She has weakness of the hips bilaterally and hip flexed posture. She has a TKA on the right but continues to have knee and hip pain. She has specific groin pain with weightbearing on the right. She is able to ambulate on level surfaces only and is limited to using a FWW for balance and safety. She would benefit from cntinued rehab for pain control, safety and balance training to increase independence and strengthening to assist with balance, endurance and back and hip pain. She is able to ambulate with PT at an excrutiatingly slow pace for 2 minutes on a level surface only. She is unable to tackle stairs at this time Plan is to continue gait ttraining and strengthenign for the above goals
[2019-12-16 15:46] VITALS: BP 142/77
--- NOTE | 2019-12-16 17:00 | NUR ---
PT READIED FOR DISCHARGE TODAY, BUT THIS WAS NOT POSSIBLE ULTIMATELY. PT CONTINUES BEFORE, NO DISTRESS, OCCASIONAL NEED FOR PAIN MEDS.
[2019-12-16 20:00] VITALS: BP 148/70
[2019-12-17 04:00] VITALS: BP 142/60
--- NOTE | 2019-12-17 07:29 | NUR ---
SHIFT CHNGE REPORT, PT AWAKE ALERT AND ORIENED RESTING IN BED, CO LOWER BACK PAIN @ 5/10 WITH ELECTRIC LIKE CHARACTER, DESCRIBED HOW SHE MISTAKENLY TOOK HER MEDS IN WRONG SEQUENCE WHICH CAUSED HER TO BE HERE, NOW SHE ANTICIPATES GOING TO A REHAB TO BE STRENGHTENED, BED IN LOWEST POSITION AND CALL QUESADA IN REACH.
--- NOTE | 2019-12-17 08:40 | NUR ---
Miss Peterson was in bathroom upon entering room, stepped out until pt. was through. Entered room once again and pt. agreed to participate in therapy session consisting of gait training. Pt. ambulated 200 ft. w/ O2 levels remaining above 90% and no shortness of breath or dizziness reported. Pt. demonstrasted a scissoring gate and slight flexion as she ambulated stride and balance where intact. pt the descended to a seated position w/ proper technique and safety. Tray table and call perkins by pt. side as exited room.
--- NOTE | 2019-12-17 12:43 | NUR ---
REPORT GIVEN TO BRANDIE AT [facility], PT EXPECTED TO LEAVE @ [phone]..
--- NOTE | 2019-12-17 14:39 | NUR ---
Discharge instructions given. Patient verbalizes understanding of same. Discharged in good condition via [facility] with *Other. All belongings sent with pt.
[2020-05-25] MEDS ORDERED: LYRICA100 MG PO (17:20)
[2020-05-25] MEDS ORDERED: OXAYDO7.5 MG PO (17:22)
[2020-05-25] MEDS ORDERED: XANAX0.5 MG PO (17:23)
[2020-05-25] MEDS ORDERED: AMITRIPTYLIN75 MG PO (17:24)
[2020-05-25] MEDS ORDERED: CYMBALTA60 MG PO (17:25)
== END 2019-12-17 14:16 | DRG 917 ==
LOC: ED 15:14 → ED-I 20:33 → ED 20:45 → ICU 20:46 → MS2 12-14 20:30
PROVIDERS: Family Medicine; Nurse Practitioner Family; ADMIT Internal Medicine; ATTEND Internal Medicine
PROC: 02HV33Z Insertion of Infusion Device into Superior Vena Cava, Percutaneous Approach (ICD-10-PCS; principal; 2019-12-11)
PROC: 0BH17EZ Insertion of Endotracheal Airway into Trachea, Via Natural or Artificial Opening (ICD-10-PCS; 2019-12-11)
PROC: 5A1935Z Respiratory Ventilation, Less than 24 Consecutive Hours (ICD-10-PCS; 2019-12-11)
PROC: 0T9B70Z Drainage of Bladder with Drainage Device, Via Natural or Artificial Opening (ICD-10-PCS; 2019-12-11)
DX: T40.2X1A Poisoning by other opioids, accidental (unintentional), initial encounter (principal); J96.00 Acute respiratory failure, unspecified whether with hypoxia or hypercapnia; G92 Toxic encephalopathy; N39.0 Urinary tract infection, site not specified; T43.011A Poisoning by tricyclic antidepressants, accidental (unintentional), initial encounter; T42.6X1A Poisoning by other antiepileptic and sedative-hypnotic drugs, accidental (unintentional), initial encounter; I10 Essential (primary) hypertension; E78.5 Hyperlipidemia, unspecified; F41.9 Anxiety disorder, unspecified; F32.9 Major depressive disorder, single episode, unspecified; G89.4 Chronic pain syndrome; G62.9 Polyneuropathy, unspecified; F17.210 Nicotine dependence, cigarettes, uncomplicated; B96.20 Unspecified Escherichia coli [E. coli] as the cause of diseases classified elsewhere; Y92.009 Unspecified place in unspecified non-institutional (private) residence as the place of occurrence of the external cause
CPT/HCPCS: J1650; S0164

== ENCOUNTER 2020-01-31 | Emergency (ER) | payer MEDICARE ==
[~2020-01-31] MED LIST changes: +CIPROFLOXACIN500 M1 PO; +CYMBALTA30 MG PO; +ELAVIL50 MG PO; +LYRICA150 MG PO; +LYRICA75 MG PO; +OXYCODONE10 M1 PO; +XANAX0.5 MG PO
[2020-01-31 14:11] LABS: HEMATOCRIT 37.3 % (37.0-47.0); HEMOGLOBIN 12.4 g/dl (12.0-16.0); IMMATURE GRANULOCYTES 0.4 % (0.0-5.0); MEAN CELL VOLUME 86.3 fL CALC (80.0-100.0); MEAN CORPUSCULAR HGB 28.7 pG CALC (26.0-32.0); MEAN CORPUSCULAR HGB CONC 33.2 g/dL CAL (32.0-36.0); NEUT# 2.67 thou/uL (2.00-7.15); RED BLOOD COUNT 4.32 mill/uL (4.20-5.60); RED CELL DISTRI WIDTH 14.6 % (11.5-15.5)
[2020-01-31 14:18] LABS: ALKALINE PHOSPHATASE 105 u/l (38-126); ANION GAP 10 (6-22 (CALC)); BILIRUBIN, TOTAL 0.8 mg/dL (0.0-1.4); BUN 10 mg/dL (7-17); BUN/CREATININE RATIO 10 (12-20 (CALC)); CARBON DIOXIDE 26 mmol/l (22-30); CHLORIDE 104 mmol/l (95-108); ETHYL ALCOHOL 0 mg/dl (0-30); GFR 57 ML/MIN (>=60 (CALC)); GFR FOR AFR.AMER. > 60 ML/MIN (>=60 (CALC)); POTASSIUM 3.5 mmol/l (3.5-5.1); SGOT/AST 26 u/l (14-36); SODIUM 136 mmol/l (137-146); TOTAL PROTEIN 6.7 g/dL (6.3-8.2)
[2020-01-31 15:23] LABS: URINE BILIRUBIN - DIPSTICK NEGATIVE (NEGATIVE); URINE BLOOD DIPSTICK NEGATIVE (NEGATIVE); URINE COLOR YELLOW; URINE GLUCOSE - DIPSTICK NEGATIVE (NEGATIVE); URINE KETONE NEGATIVE (NEGATIVE); URINE NITRITE - DIPSTICK NEGATIVE (Negative); URINE PH 5.5 (4.5-8.0); URINE PROTEIN - DIPSTICK NEGATIVE (NEG-TRACE); URINE SPECIFIC GRAVITY <=1.005; URINE UROBILINOGEN - DIPSTICK 0.2 E.U./dL (0.2)
[2020-01-31 15:33] LABS: URINE LEUK ESTERASE SMALL (NEGATIVE); URINE SQUAMOUS EPITHELIAL CELL FEW EPI/hpf (0-FEW)
[2020-01-31 16:03] LABS: COCAINE NEGATIVE (NEGATIVE); METHADONE NEGATIVE (NEGATIVE); TETRAHYDROCANNABIONOL NEGATIVE (NEGATIVE); TRICYLIC ANTIDEPRESSANTS POSITIVE (NEGATIVE)
[2020-01-31 16:04] LABS: BARBITURATES NEGATIVE (NEGATIVE); OXCYCODONE POSITIVE (NEGATIVE)
[2020-05-25] MEDS ORDERED: LYRICA100 MG PO (17:20)
[2020-05-25] MEDS ORDERED: OXAYDO7.5 MG PO (17:22)
[2020-05-25] MEDS ORDERED: XANAX0.5 MG PO (17:23)
[2020-05-25] MEDS ORDERED: AMITRIPTYLIN75 MG PO (17:24)
[2020-05-25] MEDS ORDERED: CYMBALTA60 MG PO (17:25)
== END 2020-01-31 23:58 | disposition home or self-care (01) ==
PROVIDERS: Family Medicine
DX: T42.4X1A Poisoning by benzodiazepines, accidental (unintentional), initial encounter (principal); T43.211A Poisoning by selective serotonin and norepinephrine reuptake inhibitors, accidental (unintentional), initial encounter; T40.2X1A Poisoning by other opioids, accidental (unintentional), initial encounter; R53.83 Other fatigue; F17.200 Nicotine dependence, unspecified, uncomplicated; I10 Essential (primary) hypertension

== ENCOUNTER 2020-04-30 16:58 | Emergency (ER) | payer MEDICARE, MEDICAID ==
[~2020-04-30] VITALS: Ht 165.1 cm; Wt 116.0 kg
[2020-04-30 18:20] LABS: HEMATOCRIT 38.7 % (37.0-47.0); HEMOGLOBIN 12.7 g/dl (12.0-16.0); IMMATURE GRANULOCYTES 0.3 % (0.0-5.0); MEAN CELL VOLUME 85.6 fL CALC (80.0-100.0); MEAN CORPUSCULAR HGB 28.1 pG CALC (26.0-32.0); MEAN CORPUSCULAR HGB CONC 32.8 g/dL CAL (32.0-36.0); NEUT# 11.31 thou/uL (2.00-7.15); RED BLOOD COUNT 4.52 mill/uL (4.20-5.60); RED CELL DISTRI WIDTH 13.6 % (11.5-15.5)
[2020-04-30 18:57] LABS: ALBUMIN 3.8 g/dL (3.2-5.0); ALKALINE PHOSPHATASE 129 u/l (38-126); ANION GAP 9 (6-22 (CALC)); BILIRUBIN, TOTAL 0.7 mg/dL (0.0-1.4); BUN 16 mg/dL (7-17); BUN/CREATININE RATIO 20 (12-20 (CALC)); CARBON DIOXIDE 26 mmol/l (22-30); CHLORIDE 100 mmol/l (95-108); CREATININE 0.8 mg/dL (0.5-1.0); GFR > 60 ML/MIN (>=60 (CALC)); GFR FOR AFR.AMER. > 60 ML/MIN (>=60 (CALC)); SGOT/AST 38 u/l (14-36); SODIUM 130 mmol/l (137-146); TOTAL PROTEIN 6.1 g/dL (6.3-8.2)
[2020-04-30 19:09] LABS: POTASSIUM 4.8 mmol/l (3.5-5.1)
[2020-04-30 21:22] LABS: TSH, 3RD GENERATION 1.11 uIU/mL (0.47 - 4.68)
[2020-05-01 08:07] VITALS: BP 119/61
[2020-05-25] MEDS ORDERED: LYRICA100 MG PO (17:20)
[2020-05-25] MEDS ORDERED: OXAYDO7.5 MG PO (17:22)
[2020-05-25] MEDS ORDERED: XANAX0.5 MG PO (17:23)
[2020-05-25] MEDS ORDERED: AMITRIPTYLIN75 MG PO (17:24)
[2020-05-25] MEDS ORDERED: CYMBALTA60 MG PO (17:25)
== END 2020-05-01 08:07 | disposition home or self-care (01) ==
LOC: ED 16:58
PROVIDERS: Family Medicine
DX: R53.1 Weakness (principal); R62.7 Adult failure to thrive; M54.5 Low back pain; G89.29 Other chronic pain; I10 Essential (primary) hypertension; F17.210 Nicotine dependence, cigarettes, uncomplicated; Z96.89 Presence of other specified functional implants